=== PATIENT | female | born 1955 | race Caucasian/White ===

== ENCOUNTER → 2017-05-26 | Outpatient (REF) | payer OTHER | LOC: M LAB REF 12:46 | DX: J36 Peritonsillar abscess (principal) ==

== ENCOUNTER 2017-06-07 10:26 | Inpatient (IN) | payer OTHER ==
[2017-06-07 12:13] LABS: BASO # 0.1 10^3/uL (0.0-0.2); BASO % 0.2 % (0.0-1.0); EOS % 0.2 % (0.0-3.0); HEMOGLOBIN 15.5 g/dl (12.0-16.0); IMMATURE GRANULOCYTE % 1.1 % (0-3.0); LYMPH # 1.2 10^3/uL (1.5-4.5); LYMPH % 5.5 % (24.0-44.0); MEAN CORPUSCULAR HEMOGLOBIN 30.2 pg (27.0-33.0); MEAN CORPUSCULAR HGB CONC 33.7 g/dl (32.0-36.5); MEAN CORPUSCULAR VOLUME 89.7 fl (80.0-96.0); MONO # 0.5 10^3/uL (0.0-0.8); MONO % 2.1 % (0.0-5.0); NEUTROPHILS # 20.2 10^3/uL (1.8-7.7); NEUTROPHILS % 90.9 % (36.0-66.0); PLATELET COUNT, AUTOMATED 335 10^3/uL (150-450); RED BLOOD COUNT 5.13 10^6/uL (4.00-5.40); RED CELL DISTRIBUTION WIDTH 13.2 % (11.5-14.5); WHITE BLOOD COUNT 22.2 10^3/uL (4.0-10.0)
[2017-06-07 12:24] LABS: ANION GAP 7 MEQ/L (8-16); BLOOD UREA NITROGEN 17 MG/DL (7-18); CALCIUM LEVEL 9.2 MG/DL (8.8-10.2); CARBON DIOXIDE LEVEL 30 MEQ/L (21-32); CHLORIDE LEVEL 102 MEQ/L (98-107); CPK CREATINE PHOSPHOKINASE 95 U/L (26-192); CREATININE FOR GFR 0.97 MG/DL (0.55-1.30); GLOMERULAR FILTRATION RATE > 60.0 (>45); GLUCOSE, FASTING 142 MG/DL (70-100); POTASSIUM SERUM 3.9 MEQ/L (3.5-5.1); SODIUM LEVEL 139 MEQ/L (136-145); TROPONIN I < 0.02 NG/ML (< 0.10)
[2017-06-07] MEDS: IPRATROPIUM 0.5MG/ALBUTEROL 2.5MG INH SOL UD 3ML (DUONEB)(J7620) NEB ×2 (12:24→19:58)
[2017-06-07] MEDS: methylPREDNISolone INJ 125 MG/2 ML VIAL (J2930) IV (12:24)
[2017-06-07 12:25] LABS: NT-PRO BNP 79 PG/ML (<125)
[2017-06-07 12:25] LABS: CK-MB VALUE MASS 1.5 NG/ML (0.0-3.6); MB/CK RELATIVE INDEX 1.57 (< OR =4)
[2017-06-07 12:59] LABS: LACTIC ACID SEPSIS PROTOCOL 2.3 MMOL/L (0.4-2.0)
[2017-06-07] MEDS ORDERED: ISOVUE-370 76% 100ML VIAL (Q9967) As Ordered (13:17)
[2017-06-07] MEDS: cefTRIAXone SOD 2 GM in D5W MINI-BAG PLUS 50 ML IV (14:45)
[2017-06-07 15:00] LABS: ALBUMIN 3.7 GM/DL (3.2-5.2); ALBUMIN/GLOBULIN RATIO 1.16 (1.00-1.93); ALKALINE PHOSPHATASE 85 U/L (45-117); ALT/SGPT 36 U/L (12-78); AST/SGOT 19 U/L (7-37); BILIRUBIN,DIRECT < 0.1 MG/DL (0.0-0.2); BILIRUBIN,TOTAL 0.4 MG/DL (0.2-1.0); LIPASE 390 U/L (73-393); TOTAL PROTEIN 6.9 GM/DL (6.4-8.2)
[2017-06-07 15:30] LABS: INR 0.99; PROTHROMBIN TIME 13.2 SECONDS (12.4-14.5)
[2017-06-07] MEDS ORDERED: IPRATROPIUM 0.5MG/ALBUTEROL 2.5MG INH SOL UD 3ML (DUONEB)(J7620) NEB (15:30)
[2017-06-07 15:31] LABS: PARTIAL THROMBOPLASTIN TIME 31.5 SECONDS (26.8-37.9)
[2017-06-07] MEDS: AZITHROMYCIN INJ 500 MG, VIAL MATE ADAPTER 1 EACH in D5W 250 ML IV (15:41)
[2017-06-07] MEDS: NS 1,000 ML IV ×2 (16:06→23:00)
[2017-06-07 18:32] LABS: LACTIC ACID SEPSIS PROTOCOL 4.8 MMOL/L (0.4-2.0)
[2017-06-07] MEDS: NS 500 ML IV (18:39)
[2017-06-07 18:42] LABS: CK-MB VALUE MASS 1.7 NG/ML (0.0-3.6); CPK CREATINE PHOSPHOKINASE 109 U/L (26-192); MB/CK RELATIVE INDEX 1.55 (< OR =4); TROPONIN I < 0.02 NG/ML (< 0.10)
[2017-06-08] MEDS: IPRATROPIUM 0.5MG/ALBUTEROL 2.5MG INH SOL UD 3ML (DUONEB)(J7620) NEB ×4 (00:20→21:30)
[2017-06-08 02:35] LABS: CK-MB VALUE MASS 1.8 NG/ML (0.0-3.6); CPK CREATINE PHOSPHOKINASE 121 U/L (26-192); MB/CK RELATIVE INDEX 1.48 (< OR =4); TROPONIN I < 0.02 NG/ML (< 0.10)
[2017-06-08 07:19] LABS: BASO # 0.1 10^3/uL (0.0-0.2); BASO % 0.2 % (0.0-1.0); HEMATOCRIT 39.8 % (36.0-47.0); IMMATURE GRANULOCYTE % 1.1 % (0-3.0); LYMPH # 2.7 10^3/uL (1.5-4.5); MEAN CORPUSCULAR HEMOGLOBIN 30.6 pg (27.0-33.0); MEAN CORPUSCULAR HGB CONC 33.9 g/dl (32.0-36.5); MEAN CORPUSCULAR VOLUME 90.2 fl (80.0-96.0); MONO # 1.2 10^3/uL (0.0-0.8); MONO % 4.4 % (0.0-5.0); NEUTROPHILS # 22.6 10^3/uL (1.8-7.7); NEUTROPHILS % 84.3 % (36.0-66.0); PLATELET COUNT, AUTOMATED 284 10^3/uL (150-450); RED BLOOD COUNT 4.41 10^6/uL (4.00-5.40); RED CELL DISTRIBUTION WIDTH 13.4 % (11.5-14.5); WHITE BLOOD COUNT 26.8 10^3/uL (4.0-10.0)
[2017-06-08 07:36] LABS: ALBUMIN 3.1 GM/DL (3.2-5.2); ALBUMIN/GLOBULIN RATIO 1.15 (1.00-1.93); ALKALINE PHOSPHATASE 70 U/L (45-117); ALT/SGPT 28 U/L (12-78); ANION GAP 7 MEQ/L (8-16); AST/SGOT 17 U/L (7-37); BILIRUBIN,TOTAL 0.4 MG/DL (0.2-1.0); BLOOD UREA NITROGEN 13 MG/DL (7-18); CALCIUM LEVEL 8.4 MG/DL (8.8-10.2); CARBON DIOXIDE LEVEL 24 MEQ/L (21-32); CHLORIDE LEVEL 110 MEQ/L (98-107); CREATININE FOR GFR 0.83 MG/DL (0.55-1.30); GLOMERULAR FILTRATION RATE > 60.0 (>45); GLUCOSE, FASTING 106 MG/DL (70-100); MAGNESIUM LEVEL 2.3 MG/DL (1.8-2.4); POTASSIUM SERUM 4.1 MEQ/L (3.5-5.1); SODIUM LEVEL 141 MEQ/L (136-145); TOTAL PROTEIN 5.8 GM/DL (6.4-8.2)
[2017-06-08 07:37] LABS: HEMOGLOBIN 13.5 g/dl (12.0-16.0)
[2017-06-08] MEDS: FAMOTIDINE 20 MG TAB PO (08:57)
[2017-06-08] MEDS: ATORVASTATIN 10 MG TAB PO (08:57)
[2017-06-08] MEDS: NS 1,000 ML IV ×2 (08:58→21:15)
[2017-06-08 10:55] LABS: CK-MB VALUE MASS 2.3 NG/ML (0.0-3.6); CPK CREATINE PHOSPHOKINASE 133 U/L (26-192); MB/CK RELATIVE INDEX 1.72 (< OR =4); TROPONIN I 0.08 NG/ML (< 0.10)
[2017-06-08] MEDS ORDERED: LIDOCAINE 1% MDV 20ML VIAL As Ordered (13:20)
[2017-06-08] MEDS: ENOXAPARIN 40 MG/0.4 ML SYRINGE (J1650) SC (15:14)
[2017-06-08] MEDS: CEFTRIAXONE SOD 2 GM in APPROPRIATE DILUENT 1 EA IV (15:14)
[2017-06-08 15:39] LABS: C REACTIVE PROTEIN QUANTITATIV < 0.30 MG/DL (0.00-0.30)
[2017-06-08 15:45] LABS: LACTIC ACID SEPSIS PROTOCOL 2.2 MMOL/L (0.4-2.0)
[2017-06-08] MEDS: AZITHROMYCIN INJ 500 MG, VIAL MATE ADAPTER 1 EACH in D5W 250 ML IV (17:17)
[2017-06-08] MEDS: NORTRIPTYLINE 10 MG CAP PO (21:39)
[2017-06-09 00:45] LABS: LACTIC ACID SEPSIS PROTOCOL 1.1 MMOL/L (0.4-2.0)
[2017-06-09] MEDS: ACETAMINOPHEN TAB 650MG DOSE (2X325MG) PO ×2 (01:44→14:48)
[2017-06-09] MEDS: IPRATROPIUM 0.5MG/ALBUTEROL 2.5MG INH SOL UD 3ML (DUONEB)(J7620) NEB ×4 (02:33→18:56)
[2017-06-09 07:03] LABS: BASO % 0.2 % (0.0-1.0); EOS # 0.2 10^3/uL (0.0-0.50); HEMATOCRIT 37.1 % (36.0-47.0); HEMOGLOBIN 12.4 g/dl (12.0-16.0); IMMATURE GRANULOCYTE % 0.7 % (0-3.0); LYMPH # 3.7 10^3/uL (1.5-4.5); LYMPH % 21.5 % (24.0-44.0); MEAN CORPUSCULAR HEMOGLOBIN 30.6 pg (27.0-33.0); MEAN CORPUSCULAR HGB CONC 33.4 g/dl (32.0-36.5); MEAN CORPUSCULAR VOLUME 91.6 fl (80.0-96.0); MONO # 0.8 10^3/uL (0.0-0.8); MONO % 4.9 % (0.0-5.0); NEUTROPHILS # 12.2 10^3/uL (1.8-7.7); NEUTROPHILS % 71.7 % (36.0-66.0); PLATELET COUNT, AUTOMATED 241 10^3/uL (150-450); RED BLOOD COUNT 4.05 10^6/uL (4.00-5.40); RED CELL DISTRIBUTION WIDTH 13.8 % (11.5-14.5)
[2017-06-09] MEDS: NS 1,000 ML IV ×2 (07:15→12:59)
[2017-06-09 07:31] LABS: ALBUMIN 2.8 GM/DL (3.2-5.2); ALBUMIN/GLOBULIN RATIO 1.04 (1.00-1.93); ALKALINE PHOSPHATASE 61 U/L (45-117); ALT/SGPT 28 U/L (12-78); ANION GAP 7 MEQ/L (8-16); AST/SGOT 16 U/L (7-37); BILIRUBIN,TOTAL 0.4 MG/DL (0.2-1.0); BLOOD UREA NITROGEN 14 MG/DL (7-18); C REACTIVE PROTEIN QUANTITATIV 0.58 MG/DL (0.00-0.30); CALCIUM LEVEL 7.9 MG/DL (8.8-10.2); CARBON DIOXIDE LEVEL 24 MEQ/L (21-32); CHLORIDE LEVEL 111 MEQ/L (98-107); CREATININE FOR GFR 0.87 MG/DL (0.55-1.30); GLOMERULAR FILTRATION RATE > 60.0 (>45); GLUCOSE, FASTING 95 MG/DL (70-100); MAGNESIUM LEVEL 2.2 MG/DL (1.8-2.4); POTASSIUM SERUM 3.8 MEQ/L (3.5-5.1); SODIUM LEVEL 142 MEQ/L (136-145); TOTAL PROTEIN 5.5 GM/DL (6.4-8.2)
[2017-06-09] MEDS ORDERED: guaiFENesin DM LIQ 10ML UD PO (10:15)
[2017-06-09] MEDS: ATORVASTATIN 10 MG TAB PO (10:24)
[2017-06-09] MEDS: FAMOTIDINE 20 MG TAB PO (10:25)
[2017-06-09] MEDS: ENOXAPARIN 40 MG/0.4 ML SYRINGE (J1650) SC (10:26)
[2017-06-09] MEDS: predniSONE 20 MG TAB PO (10:39)
[2017-06-09] MEDS: CEFTRIAXONE SOD 2 GM in APPROPRIATE DILUENT 1 EA IV (14:51)
[2017-06-09] MEDS: amLODIPine 5 MG TAB PO (15:56)
[2017-06-09] MEDS: AZITHROMYCIN INJ 500 MG, VIAL MATE ADAPTER 1 EACH in D5W 250 ML IV (16:01)
[2017-06-09] MEDS: NORTRIPTYLINE 10 MG CAP PO (20:29)
[2017-06-10] MEDS: IPRATROPIUM 0.5MG/ALBUTEROL 2.5MG INH SOL UD 3ML (DUONEB)(J7620) NEB ×4 (02:31→20:04)
[2017-06-10 06:52] LABS: BASO % 0.2 % (0.0-1.0); EOS # 0.1 10^3/uL (0.0-0.50); EOS % 0.7 % (0.0-3.0); HEMATOCRIT 37.5 % (36.0-47.0); HEMOGLOBIN 12.5 g/dl (12.0-16.0); IMMATURE GRANULOCYTE % 0.9 % (0-3.0); LYMPH # 3.3 10^3/uL (1.5-4.5); LYMPH % 18.1 % (24.0-44.0); MEAN CORPUSCULAR HEMOGLOBIN 30.3 pg (27.0-33.0); MEAN CORPUSCULAR HGB CONC 33.3 g/dl (32.0-36.5); MEAN CORPUSCULAR VOLUME 90.8 fl (80.0-96.0); MONO # 0.9 10^3/uL (0.0-0.8); MONO % 4.6 % (0.0-5.0); NEUTROPHILS # 13.8 10^3/uL (1.8-7.7); NEUTROPHILS % 75.5 % (36.0-66.0); PLATELET COUNT, AUTOMATED 228 10^3/uL (150-450); RED BLOOD COUNT 4.13 10^6/uL (4.00-5.40); RED CELL DISTRIBUTION WIDTH 13.3 % (11.5-14.5); WHITE BLOOD COUNT 18.3 10^3/uL (4.0-10.0)
[2017-06-10 07:11] LABS: ALBUMIN 2.9 GM/DL (3.2-5.2); ALKALINE PHOSPHATASE 71 U/L (45-117); ALT/SGPT 29 U/L (12-78); ANION GAP 8 MEQ/L (8-16); AST/SGOT 18 U/L (7-37); BILIRUBIN,TOTAL 0.4 MG/DL (0.2-1.0); BLOOD UREA NITROGEN 15 MG/DL (7-18); CALCIUM LEVEL 8.6 MG/DL (8.8-10.2); CARBON DIOXIDE LEVEL 24 MEQ/L (21-32); CHLORIDE LEVEL 107 MEQ/L (98-107); CREATININE FOR GFR 0.94 MG/DL (0.55-1.30); GLOMERULAR FILTRATION RATE > 60.0 (>45); GLUCOSE, FASTING 94 MG/DL (70-100); MAGNESIUM LEVEL 2.2 MG/DL (1.8-2.4); POTASSIUM SERUM 3.7 MEQ/L (3.5-5.1); SODIUM LEVEL 139 MEQ/L (136-145); TOTAL PROTEIN 5.8 GM/DL (6.4-8.2)
[2017-06-10] MEDS: FAMOTIDINE 20 MG TAB PO (09:05)
[2017-06-10] MEDS: ATORVASTATIN 10 MG TAB PO (09:05)
[2017-06-10] MEDS: predniSONE 20 MG TAB PO (09:05)
[2017-06-10] MEDS: amLODIPine 5 MG TAB PO (09:06)
[2017-06-10] MEDS: ENOXAPARIN 40 MG/0.4 ML SYRINGE (J1650) SC (09:07)
[2017-06-10] MEDS: CEFTRIAXONE SOD 2 GM in APPROPRIATE DILUENT 1 EA IV (16:51)
[2017-06-10] MEDS: AZITHROMYCIN INJ 500 MG, VIAL MATE ADAPTER 1 EACH in D5W 250 ML IV (18:01)
== END 2017-06-10 20:31 | disposition short-term general hospital (02) | DRG 194 ==
LOC: M ED 10:26 → M ED INP 14:55 → M MS5PR 20:21
PROC: 0FB23ZX Excision of Left Lobe Liver, Percutaneous Approach, Diagnostic (ICD-10-PCS; principal; 2017-06-08)
DX: J18.9 Pneumonia, unspecified organism (principal); E87.2 Acidosis; J44.1 Chronic obstructive pulmonary disease with (acute) exacerbation; C78.01 Secondary malignant neoplasm of right lung; I10 Essential (primary) hypertension; I71.4 Abdominal aortic aneurysm, without rupture; E78.5 Hyperlipidemia, unspecified; K21.9 Gastro-esophageal reflux disease without esophagitis; Z90.49 Acquired absence of other specified parts of digestive tract; Z87.891 Personal history of nicotine dependence; Z79.899 Other long term (current) drug therapy; Z88.0 Allergy status to penicillin

== ENCOUNTER → 2017-09-30 | Outpatient (CLI) | payer OTHER | LOC: M ONCR 09:50 | DX: C34.90 Malignant neoplasm of unspecified part of unspecified bronchus or lung (principal); C78.7 Secondary malignant neoplasm of liver and intrahepatic bile duct | CPT/HCPCS: G0463 ==

== ENCOUNTER → 2017-10-05 | Outpatient (CLI) | payer OTHER | LOC: M CARPUL 06:55 | DX: C34.90 Malignant neoplasm of unspecified part of unspecified bronchus or lung (principal) | CPT/HCPCS: 94010 ==

== ENCOUNTER → 2017-10-05 | Outpatient (CLI) | payer OTHER | LOC: M RAD 08:32 | DX: C34.90 Malignant neoplasm of unspecified part of unspecified bronchus or lung (principal) | CPT/HCPCS: 71046 ==

== ENCOUNTER 2017-10-10 10:06 | Outpatient (RCR) | payer OTHER | END 2017-11-08 | LOC: M ONCR 10:06 | DX: C34.90 Malignant neoplasm of unspecified part of unspecified bronchus or lung (principal) | CPT/HCPCS: 77300 ==

== ENCOUNTER 2017-11-09 09:38 | Outpatient (RCR) | payer OTHER | END 2017-12-09 | LOC: M ONCR 09:38 | DX: C34.90 Malignant neoplasm of unspecified part of unspecified bronchus or lung (principal) | CPT/HCPCS: 77336 ==

== ENCOUNTER 2017-11-13 08:55 | Emergency (ER) | payer OTHER ==
[2017-11-13] MEDS: NS 1,000 ML IV (09:42)
[2017-11-13] MEDS: methylPREDNISolone INJ 125 MG/2 ML VIAL (J2930) IV (09:42)
[2017-11-13] MEDS: diphenhydrAMINE INJ 50MG/ML VIAL (J1200) IV (09:42)
[2017-11-13] MEDS: FAMOTIDINE INJ 20MG/2ML VIAL (S0028) IV (09:50)
[2017-11-13 10:00] LABS: BASO % 0.1 % (0.0-1.0); EOS % 0.3 % (0.0-3.0); HEMATOCRIT 38.2 % (36.0-47.0); HEMOGLOBIN 13.3 g/dl (12.0-15.5); IMMATURE GRANULOCYTE % 0.4 % (0-3.0); LYMPH # 0.4 10^3/uL (1.5-4.5); LYMPH % 4.9 % (24.0-44.0); MEAN CORPUSCULAR HEMOGLOBIN 32.4 pg (27.0-33.0); MEAN CORPUSCULAR HGB CONC 34.8 g/dl (32.0-36.5); MEAN CORPUSCULAR VOLUME 92.9 fl (80.0-96.0); MONO # 0.3 10^3/uL (0.0-0.8); MONO % 3.9 % (0.0-5.0); NEUTROPHILS # 7.2 10^3/uL (1.8-7.7); NEUTROPHILS % 90.4 % (36.0-66.0); PLATELET COUNT, AUTOMATED 172 10^3/uL (150-450); RED BLOOD COUNT 4.11 10^6/uL (4.00-5.40); RED CELL DISTRIBUTION WIDTH 11.5 % (11.5-14.5); WHITE BLOOD COUNT 7.9 10^3/uL (4.0-10.0)
[2017-11-13 10:56] LABS: ALBUMIN 3.2 GM/DL (3.2-5.2); ALBUMIN/GLOBULIN RATIO 1.03 (1.00-1.93); ALKALINE PHOSPHATASE 71 U/L (45-117); ALT/SGPT 16 U/L (12-78); ANION GAP 9 MEQ/L (8-16); AST/SGOT 19 U/L (7-37); BILIRUBIN,DIRECT 0.1 MG/DL (0.0-0.2); BILIRUBIN,TOTAL 0.5 MG/DL (0.2-1.0); BLOOD UREA NITROGEN 21 MG/DL (7-18); CALCIUM LEVEL 8.6 MG/DL (8.8-10.2); CARBON DIOXIDE LEVEL 25 MEQ/L (21-32); CHLORIDE LEVEL 103 MEQ/L (98-107); CREATININE FOR GFR 1.74 MG/DL (0.55-1.30); GLOMERULAR FILTRATION RATE 31.5 (>45); GLUCOSE, FASTING 130 MG/DL (70-100); POTASSIUM SERUM 3.9 MEQ/L (3.5-5.1); SODIUM LEVEL 137 MEQ/L (136-145); TOTAL PROTEIN 6.3 GM/DL (6.4-8.2)
== END 2017-11-13 11:52 | disposition home or self-care (01) ==
LOC: M ED 08:55
DX: L50.9 Urticaria, unspecified (principal); N28.9 Disorder of kidney and ureter, unspecified; C34.90 Malignant neoplasm of unspecified part of unspecified bronchus or lung; I10 Essential (primary) hypertension; E78.5 Hyperlipidemia, unspecified; Z87.891 Personal history of nicotine dependence; Z79.899 Other long term (current) drug therapy; Z88.0 Allergy status to penicillin
CPT/HCPCS: J1200

== ENCOUNTER → 2017-11-21 | Outpatient (CLI) | payer OTHER ==
[2017-11-21 10:38] LABS: ALBUMIN 3.2 GM/DL (3.2-5.2); ALBUMIN/GLOBULIN RATIO 1.14 (1.00-1.93); ALKALINE PHOSPHATASE 91 U/L (45-117); ALT/SGPT 22 U/L (12-78); ANION GAP 9 MEQ/L (8-16); AST/SGOT 13 U/L (7-37); BILIRUBIN,TOTAL 0.2 MG/DL (0.2-1.0); BLOOD UREA NITROGEN 30 MG/DL (7-18); CALCIUM LEVEL 8.4 MG/DL (8.8-10.2); CARBON DIOXIDE LEVEL 27 MEQ/L (21-32); CHLORIDE LEVEL 107 MEQ/L (98-107); CREATININE FOR GFR 1.25 MG/DL (0.55-1.30); GLOMERULAR FILTRATION RATE 46.1 (>45); GLUCOSE, FASTING 92 MG/DL (70-100); POTASSIUM SERUM 3.7 MEQ/L (3.5-5.1); SODIUM LEVEL 143 MEQ/L (136-145)
== END ==
LOC: M LAB 09:03
DX: N28.9 Disorder of kidney and ureter, unspecified (principal); C34.90 Malignant neoplasm of unspecified part of unspecified bronchus or lung
CPT/HCPCS: 80053

== ENCOUNTER → 2017-12-21 | Outpatient (CLI) | payer OTHER ==
[~2017-12-21] MED LIST: PROHANCE 279.3MG/ML 15ML VIAL (A9576) As Ordered
== END ==
LOC: M RAD 09:59
DX: C34.01 Malignant neoplasm of right main bronchus (principal); G93.9 Disorder of brain, unspecified
CPT/HCPCS: A9576

== ENCOUNTER 2017-12-22 09:50 | Outpatient (RCR) | payer OTHER | END 2018-01-08 | LOC: M ONCR 12-26 14:45 | DX: C34.90 Malignant neoplasm of unspecified part of unspecified bronchus or lung (principal); C79.31 Secondary malignant neoplasm of brain | CPT/HCPCS: 77334 ==

== ENCOUNTER 2017-12-22 10:00 | Outpatient (RCR) | payer OTHER | END 2018-01-08 | LOC: M ONCR 10:00 | DX: C34.90 Malignant neoplasm of unspecified part of unspecified bronchus or lung (principal); C79.31 Secondary malignant neoplasm of brain | CPT/HCPCS: 77307 ==

== ENCOUNTER 2018-01-02 10:32 | Emergency (ER) | payer OTHER ==
[2018-01-02 11:21] LABS: BASO # 0.1 10^3/uL (0.0-0.2); BASO % 0.5 % (0.0-1.0); HEMATOCRIT 33.1 % (36.0-47.0); HEMOGLOBIN 10.9 g/dl (12.0-15.5); LYMPH % 1.6 % (24.0-44.0); MEAN CORPUSCULAR HGB CONC 32.9 g/dl (32.0-36.5); MONO # 0.3 10^3/uL (0.0-0.8); MONO % 3.3 % (0.0-5.0); NEUTROPHILS # 9.2 10^3/uL (1.8-7.7); NEUTROPHILS % 89.6 % (36.0-66.0); PLATELET COUNT, AUTOMATED 172 10^3/uL (150-450); RED BLOOD COUNT 3.52 10^6/uL (4.00-5.40); RED CELL DISTRIBUTION WIDTH 14.1 % (11.5-14.5); WHITE BLOOD COUNT 10.2 10^3/uL (4.0-10.0)
[2018-01-02 11:34] LABS: INR 0.99; PROTHROMBIN TIME 13.2 SECONDS (12.1-14.4)
[2018-01-02 11:35] LABS: PARTIAL THROMBOPLASTIN TIME 24.6 SECONDS (25.4-37.6)
[2018-01-02 11:48] LABS: LYMPH # 0.2 10^3/uL (1.5-4.5); POSITIVE DIFF POS FLAG
[2018-01-02 11:51] LABS: ERYTHROCYTE SEDIMENTATION RATE 15 mm/hr (0-30)
[2018-01-02 11:55] LABS: LACTIC ACID SEPSIS PROTOCOL 2.4 MMOL/L (0.4-2.0)
[2018-01-02 11:56] LABS: ALBUMIN 2.9 GM/DL (3.2-5.2); ALBUMIN/GLOBULIN RATIO 1.12 (1.00-1.93); ALKALINE PHOSPHATASE 107 U/L (45-117); ALT/SGPT 29 U/L (12-78); ANION GAP 8 MEQ/L (8-16); AST/SGOT 12 U/L (7-37); BILIRUBIN,DIRECT 0.1 MG/DL (0.0-0.2); BILIRUBIN,TOTAL 0.4 MG/DL (0.2-1.0); BLOOD UREA NITROGEN 48 MG/DL (7-18); CALCIUM LEVEL 8.2 MG/DL (8.8-10.2); CARBON DIOXIDE LEVEL 25 MEQ/L (21-32); CHLORIDE LEVEL 105 MEQ/L (98-107); CREATININE FOR GFR 1.42 MG/DL (0.55-1.30); GLOMERULAR FILTRATION RATE 39.8 (>45); GLUCOSE, FASTING 153 MG/DL (70-100); POTASSIUM SERUM 4.6 MEQ/L (3.5-5.1); SODIUM LEVEL 138 MEQ/L (136-145); TOTAL PROTEIN 5.5 GM/DL (6.4-8.2)
[2018-01-02 12:06] LABS: C REACTIVE PROTEIN QUANTITATIV < 0.30 MG/DL (0.00-0.30)
[2018-01-02] MEDS: PERCOCET 5MG/325MG TAB PO (12:16)
[2018-01-02 12:26] LABS: IONIZED CALCIUM 4.5 MG/DL (4.5-5.3)
== END 2018-01-02 13:22 | disposition home or self-care (01) ==
LOC: M ED 10:32
DX: M25.561 Pain in right knee (principal); M25.562 Pain in left knee; I10 Essential (primary) hypertension; F17.200 Nicotine dependence, unspecified, uncomplicated
CPT/HCPCS: 73564

== ENCOUNTER → 2018-02-01 | Outpatient (CLI) | payer OTHER | LOC: M ONCR 14:43 | DX: C34.90 Malignant neoplasm of unspecified part of unspecified bronchus or lung (principal) ==

== ENCOUNTER → 2018-05-17 | Outpatient (CLI) | payer OTHER ==
[~2018-05-17] MED LIST changes: +ASCO25TA PO; +ASPI325T PO; +ATOR1TAB19 PO; +BIOT10TA2 PO; +BIOT5TAB3 PO; +CARV6.25 PO; +DECA4TAB PO; +DIPH25CA PO; +LISI20TA3 PO; +MAGN1TAB25 PO; +ONDA4TAB5 PO; +PERC5TAB12 PO; +POTA99TA PO; +PRED20TA PO; +PRED5EL PO; +PRED5TA PO; -PROHANCE 279.3MG/ML 15ML VIAL (A9576) As Ordered; +RANI300T PO; +SPIR-10 PO; +VITA100066 PO; +VITA500T PO; +VITATAB11 PO
--- NOTE | 2018-05-18 10:56 | RADONC ---
RADIATION ONCOLOGY FOLLOWUP NOTE DATE: 05/17/2018 CHART NUMBER: [id number] DIAGNOSIS: Small cell lung carcinoma. STAGE: IV, extensive. ECOG PERFORMANCE STATUS: 0 FOLLOWUP NOTE: Ms. Calvo is a very pleasant, 62-year-old white female with the diagnosis extensive stage small-cell lung carcinoma who is presenting to us today for routine followup visit 5 months post completion of whole brain radiation therapy. The patient presents today reporting generally she is doing well. She apparently has progression of disease and has initiated a new systemic therapy with her medical oncologist, Dr. Brandon Welch. She is being seen in her medical oncology office every 3 weeks. REVIEW OF SYSTEMS: The patient's review of systems is noncontributory. Denies nausea, vomiting, fevers, chills, night sweats, diplopia, headaches, anxiety or depression, anorexia, weight loss, visual disturbances, chest pain, urinary or bowel difficulties, bone pain, or neurological problems. PHYSICAL EXAMINATION: The patient is a well-developed, well-nourished, 62-year-old white female, in no acute distress. HEENT exam is normocephalic, atraumatic. Extraocular movements are intact. There is no palpable cervical, supraclavicular, infraclavicular, axillary, or inguinal lymphadenopathy present. Lungs are clear to auscultation and percussion. Heart has a regular rate and rhythm. Abdomen is benign with no hepatosplenomegaly, masses, or tenderness. Skeletal examination reveals no tenderness to pressure or percussion of the bony skeleton. Extremities reveal no clubbing, cyanosis, or edema. Neurologic exam is grossly intact, as is the remainder of the physical examination. ASSESSMENT: The patient is being followed and managed closely by her medical oncologist and is being seen every 4 weeks and receiving systemic therapy. In light of this very close management and followup, I have discharged her from our followup except on a p.r.n. basis. I have given the patient our office number as well as her cell phone number and let her know to feel free and contact me at anytime if we could be of any assistance in the meantime. I also let her know to contact us should any questions arise or should she have any new symptoms or problems. She has also been informed that Dr. Welch will be referring her back to us should he feel there is an indication for radiation therapy. cc: MD Faye Sawant DO Edward J Wyluda DO
== END ==
LOC: M ONCR 08:47
PROVIDERS: ATTEND Radiology Radiation Oncology
DX: C34.90 Malignant neoplasm of unspecified part of unspecified bronchus or lung (principal)

== ENCOUNTER → 2018-08-21 | Outpatient (REF) | payer OTHER ==
[~2018-08-21] MED LIST changes: -ASCO25TA PO; +ASPI-1 PO; -ASPI325T PO; -MAGN1TAB25 PO; +MAGN1TAB26 PO; +VITA1TAB23 PO
[2018-08-21 18:36] LABS: PERCENT SATURATION 32.7 % (13.2-45.0)
== END ==
LOC: M LAB REF 17:30
PROVIDERS: ATTEND Internal Medicine Nephrology
DX: D50.9 Iron deficiency anemia, unspecified (principal)

== ENCOUNTER → 2018-10-02 | Outpatient (CLI) | payer OTHER ==
[~2018-10-02] MED LIST changes: +PROHANCE 279.3MG/ML 5ML VIAL (A9576) As Ordered ONE
--- NOTE | 2018-10-02 16:20 | REP ---
MRI brain without and with IV gadolinium: History: History of metastatic intracranial disease status post radiation therapy. For reassessment. Comparison MRI study is from December 21, 2017. Technique: Axial and sagittal imaging planes are utilized for T1 and T2-weighted scans. Sequences include spin-echo, fast spin echo, FLAIR, and diffusion weighted sequences. The gadolinium enhancement dose is 7 mL of intravenous ProHance. MRI findings: No bony calvarial lesion is appreciated. There is mucosal thickening affecting the left maxillary sinus and left ethmoid sinuses today. This it is more pronounced in the maxillary sinus and new in the ethmoid sinuses. No intraorbital abnormality is seen. Craniocervical junction is unremarkable. No evidence of intracranial hemorrhage. Diffusion weighted scan show no evidence of restricted diffusion. The previously noted enhancing nodules distributed in the supratentorial brain are no longer apparent. There is no visible enhancing nodule today intracranially. No new lesion is seen. Impression: Previously noted pattern of intracranial metastatic disease is no longer apparent. No acute intracranial abnormality. Paranasal sinus disease involving the left maxillary and left ethmoid sinuses. Electronically Signed by Dixon Gaytan MD 10/02/2018 04:43 P
== END ==
LOC: M RAD 12:49
PROVIDERS: ATTEND Internal Medicine
DX: R91.8 Other nonspecific abnormal finding of lung field (principal); D64.9 Anemia, unspecified
CPT/HCPCS: 70553; A9576

== ENCOUNTER 2018-11-08 22:02 | Inpatient (IN) | payer OTHER ==
[~2018-11-08] VITALS: Ht 162.6 cm; Wt 91.2 kg
[~2018-11-08 22:02] MED LIST changes: -DIPH25CA PO; +DIPH25CA32 PO; +LISI20TA20 PO; -LISI20TA3 PO; -PROHANCE 279.3MG/ML 5ML VIAL (A9576) As Ordered ONE
[2018-11-08] MEDS ORDERED: NS 1,000 ML IV SCH (22:18)
[2018-11-08] MEDS ORDERED: KETOROLAC 30 MG/ML VIAL (J1885) IV ONE (22:30)
[2018-11-08] MEDS ORDERED: ONDANSETRON 4MG/2ML VIAL (J2405) IV ONE (22:30)
[2018-11-08] MEDS ORDERED: MORPHINE 2 MG/ML 1ML SYRINGE (J2270) IV ONE (22:30)
[2018-11-08 22:59] LABS: HEMATOCRIT 29.5 % (36.0-47.0); HEMOGLOBIN 9.7 g/dl (12.0-15.5); MEAN CORPUSCULAR HEMOGLOBIN 33.3 pg (27.0-33.0); MEAN CORPUSCULAR HGB CONC 32.9 g/dl (32.0-36.5); MEAN CORPUSCULAR VOLUME 101.4 fl (80.0-96.0); RED BLOOD COUNT 2.91 10^6/uL (4.00-5.40); WHITE BLOOD COUNT 22.2 10^3/uL (4.0-10.0)
[2018-11-08 23:02] LABS: PLATELET COUNT, AUTOMATED 57 10^3/uL (150-450)
[2018-11-08 23:06] LABS: INR 2.12; PROTHROMBIN TIME 23.5 SECONDS (11.8-14.0)
[2018-11-08 23:23] LABS: ATYPICAL LYMPH 5 % (0-5); LYMPHOCYTES 5 % (16-52); MONOCYTES 4 % (0-8); NEUTROPHILS 82 % (35-75)
[2018-11-08 23:24] LABS: ANISOCYTOSIS 1+; PLATELET ESTIMATE DECREASED (NORMAL); TOXIC GRANULATION 1+; TOXIC VACUOLATION 1+
[2018-11-08 23:26] LABS: OVALOCYTES 1+
[2018-11-08] MEDS ORDERED: fentaNYL 100 MCG/2 ML INJECTION (J3010) IV ONE (23:30)
[2018-11-09] VITALS (20 sets, daily range): BP systolic 64–88; BP diastolic 30–47
[2018-11-09] MEDS ORDERED: LIDOCAINE 2% 5ML JELLY UROJET TOP ONE
[2018-11-09] MEDS ORDERED: LORazepam 1 MG TAB PO STA (00:01)
[2018-11-09 00:08] LABS: ALBUMIN 2.2 GM/DL (3.2-5.2); BILIRUBIN,DIRECT 3.6 MG/DL (0.0-0.2); BILIRUBIN,TOTAL 4.2 MG/DL (0.2-1.0); CALCIUM LEVEL 7.4 MG/DL (8.8-10.2); CREATININE FOR GFR 4.15 MG/DL (0.55-1.30); GLOMERULAR FILTRATION RATE 11.5 (>45); POTASSIUM SERUM 5.8 MEQ/L (3.5-5.1); TOTAL PROTEIN 4.3 GM/DL (6.4-8.2)
--- NOTE | 2018-11-09 00:54 | REPVR ---
EXAM: CT Head Without Contrast EXAM DATE/TIME: 11/08/2018 11:56 PM CLINICAL HISTORY: 63 years old, female; Injury or trauma; Fall; Initial encounter; Concussion / head injury; Additional info: Altered TECHNIQUE: Imaging protocol: Computed tomography images of the head without contrast. Radiation optimization: All CT scans at this facility use at least one of these dose optimization techniques: automated exposure control; mA and/or kV adjustment per patient size (includes targeted exams where dose is matched to clinical indication); or iterative reconstruction. COMPARISON: CT Head without contrast 06/08/2017 2:55 PM FINDINGS: Brain: There is no acute intracranial abnormality. Mild prominence of ventricles and sulci representing volume loss. Mild small vessel ischemic changes are seen. There is no mass, midline shift, or mass effect. Alfonso-white matter differentiation is preserved. There is no evidence of hemorrhage. There is no extra-axial fluid collection. Basal cisterns are patent. Ventricles: See Brain Finding. Bones/joints: The visualized osseous structures are unremarkable. Sinuses: Visualized sinuses are clear. Mastoid air cells: Mastoid air cells are clear. Soft tissues: Unremarkable. IMPRESSION: 1. Mild volume loss and small vessel ischemic changes. . 2. No acute intracranial abnormality. Electronically signed by: Judi Smith On 11/09/2018 00:54:21 AM
[2018-11-09] MEDS ORDERED: NALOXONE INJ 2 MG/2 ML SYRINGE (J2310) As Ordered ONE (01:09)
[2018-11-09] MEDS ORDERED: NALOXONE INJ 2 MG/2 ML SYRINGE (J2310) IV STA (01:09)
[2018-11-09 01:26] LABS: AMPHETAMINES LEVEL URINE NEGATIVE (NEGATIVE); BARBITURATES URINE NEGATIVE (NEGATIVE); BENZODIAZEPINES URINE NEGATIVE (NEGATIVE); CANNABINOIDS URINE NEGATIVE (NEGATIVE); COCAINE METABOLITE URINE NEGATIVE (NEGATIVE); METHADONE URINE NEGATIVE (NEGATIVE); OPIATES URINE NEGATIVE (NEGATIVE); PHENCYCLIDINE URINE NEGATIVE (NEGATIVE)
[2018-11-09] MEDS ORDERED: NS 1,000 ML IV ONE ×3 (02:15→05:45)
[2018-11-09] MEDS ORDERED: SOD POLYSTYRENE SULFONATE SUSP 15 GM/60 ML UD PO ONE (02:30)
[2018-11-09 02:36] LABS: ABG BASE EXCESS -18.3 (-2.0-2.0); ABG HCO3 5.9 MEQ/L (22.0-26.0); ABG O2 SATURATION 98.6 % (95.0-99.0); ABG PARTIAL PRESSURE O2 150.2 mmHg (75.0-100.0); ABG STANDARD HCO3 10.7 MEQ/L (22.0-26.0); ABG TOTAL CO2 6.3 MEQ/L (23.0-31.0); ABG pH (ARTERIAL) 7.283 UNITS (7.350-7.450)
[2018-11-09 02:37] LABS: ABG PARTIAL PRESSURE CO2 12.7 mmHg (35.0-45.0)
[2018-11-09] MEDS ORDERED: SODIUM BICARBONATE 8.4% INJ 50 ML SYRINGE As Ordered ONE (02:44)
[2018-11-09] MEDS ORDERED: SODIUM BICARBONATE 8.4% INJ 50 ML SYRINGE IV ONE (02:45)
[2018-11-09] MEDS ORDERED: HYCA1CAP PO (02:55)
[2018-11-09] MEDS ORDERED: ALPH600C PO (02:55)
[2018-11-09] MEDS ORDERED: [UNRECOGNIZED DRUG - CODE] SC (02:55)
[2018-11-09] MEDS ORDERED: VITACAP8 PO (02:55)
[2018-11-09] MEDS ORDERED: [UNRECOGNIZED DRUG - CODE] PO (02:55)
[2018-11-09] MEDS ORDERED: FENT50DI5 TD (02:55)
[2018-11-09] MEDS ORDERED: PATIENT COMMENTS (02:56)
--- NOTE | 2018-11-09 03:40 | REPVR ---
EXAM: CT Abdomen and Pelvis Without Contrast EXAM DATE/TIME: 11/09/2018 2:40 AM CLINICAL HISTORY: 63 years old, female; Other: Hepatic&renal failure; Additional info: Eval hepat TECHNIQUE: Imaging protocol: Axial computed tomography images of the abdomen and pelvis without contrast. Coronal and sagittal reformatted images were created and reviewed. Radiation optimization: All CT scans at this facility use at least one of these dose optimization techniques: automated exposure control; mA and/or kV adjustment per patient size (includes targeted exams where dose is matched to clinical indication); or iterative reconstruction. COMPARISON: CT ABD PELVIS W/O CONTRAST 04/10/2018 1:50 PM FINDINGS: Lungs: Atelectasis in the visualized lungs. 2 to 3 mm lung nodules in the right lung. Followup as clinically indicated. Liver: Marked enlargement of the liver. Previously described liver metastases lesions are not seen on this noncontrast study. Gallbladder and bile ducts: Status post cholecystectomy. Pancreas: Mild atrophy of the pancreas. Pancreatic lesion versus lymph node adjacent to the head of the pancreas is difficult to visualize on this noncontrast study. Spleen: Spleen is small in size. Adrenals: Normal. No mass. Kidneys and ureters: Normal. No hydronephrosis. Stomach and bowel: Scattered colonic diverticula without CT evidence of diverticulitis. Appendix: No evidence of appendicitis. Intraperitoneal space: Normal. No free air. No significant fluid collection. Vasculature: Atherosclerosis. Stable abdominal aortic aneurysm. Lymph nodes: Normal. No enlarged lymph nodes. Bladder: Urinary bladder is decompressed with Patel. Reproductive: Prominent uterus for patient's age. Calcified densities in the uterus likely degenerative fibroids. Bilateral adnexa are unremarkable. Bones/joints: Diffuse demineralization of the bones with degenerative changes. Soft tissues: Unremarkable. Other findings: Coronary calcifications. IMPRESSION: 1. Marked hepatomegaly. Previously described liver metastases lesions are not seen on this noncontrast study. 2. Spleen is small in size. 3. Bilateral kidneys appears to be unremarkable. Electronically signed by: Judi Smith On 11/09/2018 03:39:27 AM
[2018-11-09] MEDS ORDERED: MEROPENEM INJ 1 GM in APPROPRIATE DILUENT 1 EA IV SCH (04:00)
[2018-11-09] MEDS ORDERED: LACTULOSE 20 GM/30 ML SYRUP UD PR ONE (04:15)
[2018-11-09] MEDS ORDERED: SODIUM BICARBONATE 150 MEQ in D5W 1,000 ML IV SCH (04:15)
[2018-11-09 05:16] LABS: HEMATOCRIT 28.6 % (36.0-47.0); HEMOGLOBIN 9.6 g/dl (12.0-15.5); MEAN CORPUSCULAR HEMOGLOBIN 34.3 pg (27.0-33.0); MEAN CORPUSCULAR HGB CONC 33.6 g/dl (32.0-36.5); MEAN CORPUSCULAR VOLUME 102.1 fl (80.0-96.0); PLATELET COUNT, AUTOMATED 57 10^3/uL (150-450)
[2018-11-09 05:24] LABS: LYMPHOCYTES 10 % (16-52); METAMYELOCYTES 2 % (0-0); MONOCYTES 6 % (0-8); NEUTROPHILS 77 % (35-75)
[2018-11-09 05:25] LABS: ANISOCYTOSIS 1+; INR 2.39; PLATELET ESTIMATE DECREASED (NORMAL); PROTHROMBIN TIME 25.9 SECONDS (11.8-14.0)
[2018-11-09 05:26] LABS: PARTIAL THROMBOPLASTIN TIME 41.4 SECONDS (25.0-38.4)
[2018-11-09 05:27] LABS: OVALOCYTES 1+; TOXIC GRANULATION 1+; TOXIC VACUOLATION 1+
[2018-11-09] MEDS ORDERED: LACTULOSE 20 GM/30 ML SYRUP UD PO SCH (06:00)
[2018-11-09 06:02] LABS: ALBUMIN 2.3 GM/DL (3.2-5.2); BILIRUBIN,DIRECT 4.1 MG/DL (0.0-0.2); BILIRUBIN,TOTAL 4.8 MG/DL (0.2-1.0); TOTAL PROTEIN 4.5 GM/DL (6.4-8.2)
--- NOTE | 2018-11-09 06:05 | HPEPDOC ---
General Date of Admission 11/09/18 Date of Service: Nov 09, 2018 Chief Complaint The patient is a 63-year-old female admitted with a reason for visit of Fall Injury. 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 She also has been having confusion,extreme weakness for 4 days. She has been sleeping too much since Tuesday and with minimal oral intake. So on Tuesday removed her fentanyl patch. She also had a fall on Tuesday that is 2 days ago but refused to come to hospital then. After removal of her fentanyl patch her pain had become uncontrollable. She was given morphine and fentanyl in the ED that made her very lethargic so was given narcan. In the ED patient was found to be encephalopathic ,in acute renal failure, with BUN> 100, severe high anion gap metabolic acidosis, lactic acidosis. elevated WBC. Her blood pressures were 80s/50s . She was found to be in acute hepatic failure and acute renal failure with acute metabolic encephalopathy. The patient complained of generalized abdominal pain with maximum in the right upper quadrant. it is dull aching in nature about 7/10 with radiation to the back. Home Medications Scheduled Alpha Lipoic Acid (Alpha Lipoic Acid) 600 Mg Capsule, 600 MG PO DAILY, (Reported) Ascorbic Acid (Vitamin C) 250 Mg Tab, 250 MG PO DAILY, (Reported) Biotin (Biotin) 10 Mg Tab, 10 MG PO DAILY, (Reported) Carvedilol (Carvedilol) 6.25 Mg Tab, 6.25 MG PO BID, (Reported) Pegfilgrastim-Cbqv (Udenyca) 6 Mg/0.6 Ml Syringe, 6 MG SC Q6DAYS, (Reported) TAKES AFTER 5 DAY COURSE OF HYCAMTIN. Ranitidine HCl (Ranitidine HCl) 300 Mg Tab, 1 TAB PO DAILY, (Reported) Spironolactone (Spironolactone) 25 Mg Tab, 25 MG PO DAILY, (Reported) Topotecan HCl (Hycamtin) 1 Mg Capsule, 4 MG PO DAILY, (Reported) FOR 5 DAYS. STARTED THURSDAY NOVEMBER 08, 2018. TAKES WITH 0.50MG DOSE FOR TOTAL OF 4.5MG DAILY Topotecan HCl (Hycamtin) 0.25 Mg Capsule, 0.5 MG PO DAILY, (Reported) FOR 5 DAYS. STARTED THURSDAY NOVEMBER 08, 2018. TAKES WITH 4MG DOSE FOR TOTAL OF 4.5MG DAILY Vitamin B Complex (Vitamin B Complex) 1 Each Capsule, 1 CAP PO DAILY, (Reported) fentaNYL (fentaNYL) 50 Mcg Patch.td72, 50 MCG TD Q3D, (Reported) REMOVED TUESDAY EVENING Miscellaneous Medications [Patient Comments] , (Reported) PATIENT'S FAMILY STATES SHE HAS PROBABLY NOT TAKEN HER SCHEDULED MEDICATIONS FOR SEVERAL DAYS WITH THE EXCEPTION OF THE HYCAMTIN Allergies Coded Allergies: Penicillins (Verified Allergy, Intermediate, Hives, 08/09/18) Past Medical History Medical History Extensive small cell cancer of lungs with liver and brain metastasis s/p different regimens of chemotherapy, whole brain radiation, thoracic radiation for mediastinal mass HTN, DLP and GERD, hiatal hernia, diverticulosis, hemorrhoids. Infrarenal abdominal aortic aneurysm, measuring 3.3 cm x 2.8 cm. Coronary artery disease. Surgical History She had a cholecystectomy in 1985. She had an appendectomy in 1964. Tubal ligation was in the 1975 and reversed in 1986. She has too tubal pregnancies in 1986. Family History Father: , 71, abdominal aortic aneurysm rupture. Mother: , 37, suicide. Siblings: Three brothers, half brother, half sister. Half sister has lupus. Social History * Smoker: Denies Alcohol: Denies Drugs: denies A-FIB/CHADSVASC A-FIB History Current/History of A-Fib/PAF?: No Review of Systems Constitutional: Reports: Weakness, Fatigue, Lethargy Eyes: Denies: Pain, Vision change Skin: Reports: Jaundice; Denies: Rash, Lesions Pulmonary: Reports: Dyspnea Cardiovascular: Reports: Edema; Denies: Chest Pain, Palpitations, Orthopnea, Paroxysmal Noc. Dyspnea Gastrointestinal: Reports: Abdominal Pain; Denies: Nausea, Vomiting, Diarrhea Genitourinary: Denies: Dysuria, Frequency, Incontinence, Retention Hematologic: Reports: Bruising; Denies: Bleeding Excessively Musculoskeletal: Reports: Back Pain Neurological: Reports: Incoordination, Change in speech, Confusion Physical Examination General Exam: Positive: Moderate Distress, Other (lethargic but arousable) Eye Exam: Positive: PERRLA, Sclera icteric ENT Exam: Positive: Atraumatic, Pharynx Normal, Other ENT (mucous membranes dry) Neck Exam: Positive: Supple; Negative: JVD, thyromegaly Chest Exam: Positive: Clear to auscultation, Normal air movement Heart Exam: Positive: Rate Normal, Regular Rhythm, Normal S1, Normal S2; Negative: Murmurs, Rubs Telemetry: Positive: No significant arrhythmia Abdomen Exam: Positive: Normal bowel sounds, Soft, Tenderness Extremity Exam: Positive: Cyanosis, Edema, Other (pulses not palpable) Vital Signs Vital Signs Date Time Temp Pulse Resp B/P (MAP) Pulse Ox O2 Delivery O2 Flow Rate FiO2 11/09/18 02:32 87 100 11/09/18 02:15 107/55 (72) 11/08/18 23:27 20 11/08/18 22:11 96.6 Laboratory Data Labs 24H Laboratory Tests 2 11/08/18 22:46: Prothrombin Time 23.5H, Prothromb Time International Ratio 2.12 11/08/18 22:47: Immature Granulocyte % (Auto) , Nucleated Red Blood Cells % (auto) 1.7H, Neutrophils 82H, Band Neutrophils 4, Lymphocytes (Manual) 5L, Monocytes (Manual) 4, Atypical Lymphocytes 5, Toxic Granulation 1+, Toxic Vacuolation 1+, Platelet Estimate DECREASED, Immature Platelet Fraction 6.2, Anisocytosis 1+, Macrocytosis 2+, Ovalocytes 1+, Anion Gap 22H, Glomerular Filtration Rate 11.5L, Calcium Level 7.4L, Aspartate Amino Transf (AST/SGOT) 1408H, Alanine Aminotransferase (ALT/SGPT) 836H, Alkaline Phosphatase 414H, Total Bilirubin 4.2H, Direct Bilirubin 3.6H, Total Protein 4.3L, Albumin 2.2L, Albumin/Globulin Ratio 1.05, Lipase 311 11/09/18 00:29: Ammonia 42H 11/09/18 00:41: Urine Color DARLENE, Urine Appearance CLOUDYH, Urine pH 5.0, Urine Specific [place] 1.013, Urine Protein NEGATIVE, Urine Glucose (UA) NEGATIVE, Urine Ketones NEGATIVE, Urine Blood 1+H, Urine Nitrite NEGATIVE, Urine Bilirubin NEGATIVE, Urine Urobilinogen 0.2, Urine Leukocyte Esterase NEGATIVE, Urine WBC (Auto) 0, Urine RBC (Auto) 0, Urine Hyaline Casts (Auto) 0, Urine Bacteria (Auto) 1+H, Urine Squamous Epithelial Cells 0, Urine Transitional Epithelial Cells 1, Urine Amorphous Sediment SMALLH, Urine Mucus (Auto) SMALL, Urine Sperm (Auto) , Urine Amphetamines Screen NEGATIVE, Urine Benzodiazepines Screen NEGATIVE, Urine Opiates Screen NEGATIVE, Urine Methadone Screen NEGATIVE, Urine Barbiturates Screen NEGATIVE, Urine Phencyclidine Screen NEGATIVE, Urine Cocaine Metabolite Screen NEGATIVE, Urine Cannabinoids Screen NEGATIVE 11/09/18 02:15: Blood Gas Bicarbonate Standard 10.7L, Arterial Blood pH 7.283L, Arterial Blood Partial Pressure CO2 12.7*L, Arterial Blood Partial Pressure O2 150.2H, Arterial Blood Total CO2 6.3L, Arterial Blood HCO3 5.9L, Arterial Blood Base Excess -18 .3L, Arterial Blood Oxygen Saturation 98.6 CBC/BMP Laboratory Tests 11/08/18 22:47 Red Blood Count 2.91 L, Mean Corpuscular Volume 101.4 H, Mean Corpuscular Hemoglobin 33.3 H, Mean Corpuscular Hemoglobin Concent 32.9, Red Cell Distribution Width 15.1 H Assessment/Plan Acute liver failure with thrombocytopenia, elevated INR, severe lactic acidosis due to massive mets to the liver lactulose and supportive Acute renal failure on ckd 3 with hyperkalemia and severe acidosis baseline creatinine 1.4 as of october 15 2018 the from [facility] probably due minimal oral intake in [facility] last 3 days. No obstruction in CT abdomen and pelvis. started on bicarb gtt and IVF boluses. Acute metabolic encephalopathy due to uremia and hepatic encephalopathy lactulose enema IVF. Shock with shock liver shock may be due to severe acidosis/ infection/ poor oral intake and intravascular depletion. meropenem ivf fluid 3 liter bolus. bicarb gtt. will consider vasopressors if Bp does not come up with IVF. Hypotension due to either sepsis or severe acidosis. continue IVF, bicarb gtt. Severe high anion gap metabolic acidosis due to lactic acidosis and renal failure Metastatic small cell cancer of the lungs with massive mets to liver as per CT scan in [facility] in first week of october Advance directives discussed explained the endstage cancer with liver failure and renal failure and probable demise this admission accepted DNR and DNI have not yet accepted MACHINERY MOVER status Would initiate discussions about MACHINERY MOVER Plan / VTE VTE Prophylaxis Ordered?: Yes OREN VALDERRAMA MD Nov 09, 2018 02:55
--- NOTE | 2018-11-09 07:41 | REP ---
A PA and lateral chest with the patient sitting: Comparison is 10/05/2017. There is a right IJ central venous catheter with the tip in the superior vena cava as an interval change. There is no pneumothorax or hemothorax. Lung tracy are clear. Cardiac size is normal. The naeem, mediastinum, skeletal structures are unremarkable. Impression: New right IJ central venous catheter as described. Otherwise, negative PA and chest Electronically Signed by Tylor Lutz MD 11/09/2018 07:32 A
[2018-11-09] MEDS ORDERED: SODIUM CHLORIDE 0.9% 1000ML IV ONE (08:15)
[2018-11-09] MEDS ORDERED: ACETAMINOPHEN 650 MG SUPP PR PRN (09:00)
[2018-11-09] MEDS ORDERED: BISACODYL 10 MG SUPP PR PRN (09:00)
[2018-11-09] MEDS ORDERED: ONDANSETRON 4MG/2ML VIAL (J2405) IV PRN (09:00)
[2018-11-09] MEDS ORDERED: SCOPOLAMINE 1MG TRANSDERMAL PATCH TOP PRN (09:00)
[2018-11-09] MEDS ORDERED: LORazepam 2 MG/ML VIAL (J2060) IV PRN (09:00)
[2018-11-09] MEDS ORDERED: ATROPINE SULFATE 1% OP SOLN 2 ML BTL SL PRN (09:00)
[2018-11-09] MEDS ORDERED: FLEET ENEMA PR PRN (09:00)
[2018-11-09] MEDS ORDERED: MORPHINE 4 MG/ML 1ML VIAL/SYRINGE (J2270) IV PRN (09:00)
[2018-11-09] MEDS: MORPHINE 4 MG/ML 1ML VIAL/SYRINGE (J2270) IV PRN ×2 (11:35→13:04)
--- NOTE | 2018-11-10 15:11 | DS.PDOC ---
Discharge Summary General Date of Admission Nov 09, 2018 at 04:05 Date of Discharge 11/09/18 Discharge Summary PROCEDURES PERFORMED DURING STAY: [None]. ADMITTING DIAGNOSES: 1. [stage 4 small cell cancer with metabolic decline - weakness and multi organ failure - acute renal and liver failure ]. DISCHARGE DIAGNOSES: 1. [stage 4 small cell cancer with metabolic decline - weakness and multi organ failure]. COMPLICATIONS/CHIEF COMPLAINT: Acute Liver Failure; Acute Renal Failure. HISTORY OF PRESENT ILLNESS: 63 year old female with PMH of metastatic small cell cancer with mets to liver, brain s/p whole brain radiation, radiation to mediastinum, received different regimens of chemotherapy with disease progression started on topotecan on 11/08 was brought to the ED for abdominal pain in the RUQ radiating to the back. She also has been having confusion,extreme weakness for 4 days. She has been slee ping too much since Tuesday and with minimal oral intake. So on Tuesday removed her fentanyl patch. She also had a fall on Tuesday that is 2 days ago but refused to come to hospital then. After removal of her fentanyl patch her pain had become uncontrollable. She was given morphine and fentanyl in the ED that made her very lethargic so was given narcan. In the ED patient was found to be encephalopathic ,in acute renal failure, with BUN> 100, severe high anion gap metabolic acidosis, lactic acidosis. elevated WBC. Her blood pressures were 80s/50s . She was found to be in acute hepatic failure and acute renal failure with acute metabolic encephalopathy. The patient complained of generalized abdominal pain with maximum in the right upper quadrant. it is dull aching in nature about 7/10 with radiation to the back. HOSPITAL COURSE: [Patient was admitted to the hospital for signs of multiple organ failure in patient with end stage small cell cancer. Patient was made dnr/dni on admitted. Patient's BP was consistently low even after receiving a number of NS boluses, family did not want her to be placed on pressors. They requested to make her comfort care and she was made comfort care. Later in the day patient . ]. DISCHARGE MEDICATIONS: Please see below. ALLERGIES: Please see below. LABORATORY DATA: Please see below PROGNOSIS: [grave DISPOSITION: . TIME SPENT ON DISCHARGE: Greater than [20] minutes. Vital Signs/I&Os Vital Signs Date Time Temp Pulse Resp B/P (MAP) Pulse Ox O2 Delivery O2 Flow Rate FiO2 11/09/18 09:01 93.6 86 28 73/35 (56) 98 I&O- Last 24 Hours up to 6 AM 11/09/18 05:59 Intake Total 1000 ml Output Total 125 ml Balance 875 ml Laboratory Data Labs 24H Laboratory Tests 2 11/09/18 00:29: Ammonia 42H 11/09/18 00:41: Urine Color DARLENE, Urine Appearance CLOUDYH, Urine pH 5.0, Urine Specific [place] 1.013, Urine Protein NEGATIVE, Urine Glucose (UA) NEGATIVE, Urine Keto lilliam NEGATIVE, Urine Blood 1+H, Urine Nitrite NEGATIVE, Urine Bilirubin NEGATIVE, Urine Urobilinogen 0.2, Urine Leukocyte Esterase NEGATIVE, Urine WBC (Auto) 0, Urine RBC (Auto) 0, Urine Hyaline Casts (Auto) 0, Urine Bacteria (Auto) 1+H, Urine Squamous Epithelial Cells 0, Urine Transitional Epithelial Cells 1, Urine Amorphous Sediment SMALLH, Urine Mucus (Auto) SMALL, Urine Sperm (Auto) , Urine Amphetamines Screen NEGATIVE, Urine Benzodiazepines Screen NEGATIVE, Urine Opiates Screen NEGATIVE, Urine Methadone Screen NEGATIVE, Urine Barbiturates Screen NEGATIVE, Urine Phencyclidine Screen NEGATIVE, Urine Cocaine Metabolite Screen NEGATIVE, Urine Cannabinoids Screen NEGATIVE 11/09/18 02:15: Blood Gas Bicarbonate Standard 10.7L, Arterial Blood pH 7.283L, Arterial Blood Partial Pressure CO2 12.7*L, Arterial Blood Partial Pressure O2 150.2H, Arterial Blood Total CO2 6.3L, Arterial Blood HCO3 5.9L, Arterial Blood Base Excess - 18.3L, Arterial Blood Oxygen Saturation 98.6 11/09/18 02:48: Lactic Acid Level 10.9*H, Procalcitonin 1.76 11/09/18 04:05: Lab Scanned Report LAB OTHER 11/09/18 05:05: Immature Granulocyte % (Auto) , Nucleated Red Blood Cells % (auto) 1.8H, Neutrophils 77H, Band Neutrophils 5, Lymphocytes (Manual) 10L, Monocytes (Manual) 6, Metamyelocytes 2H, Toxic Granulation 1+, Toxic Vacuolation 1+, P latelet Estimate DECREASED, Anisocytosis 1+, Macrocytosis 2+, Ovalocytes 1+, Prothrombin Time 25.9H, Prothromb Time International Ratio 2.39, Activated Partial Thromboplast Time 41.4H, Magnesium Level 3.6H, Aspartate Amino Transf (AST/SGOT) 2402H, Alanine Aminotransferase (ALT/SGPT) 1441H, Alkaline Phosphatase 475H, Total Bilirubin 4.8H, Direct Bilirubin 4.1H, Total Protein 4.5L, Albumin 2.3L, Albumin/Globulin Ratio 1.05 11/09/18 07:09: Lactic Acid Followup at 4 Hours 11.3*H CBC/BMP Laboratory Tests 11/09/18 05:05 Red Blood Count 2.80 L, Mean Corpuscular Volume 102.1 H, Mean Corpuscular Hemoglobin 34.3 H, Mean Corpuscular Hemoglobin Concent 33.6, Red Cell Distribution Width 15.2 H Microbiology Microbiology 11/09/18 Blood Culture, Received Pending 11/09/18 Blood Culture, Received Pending Discharge Medications Scheduled Alpha Lipoic Acid (Alpha Lipoic Acid) 600 Mg Capsule, 600 MG PO DAILY, (Reported) Ascorbic Acid (Vitamin C) 250 Mg Tab, 250 MG PO DAILY, (Reported) Biotin (Biotin) 10 Mg Tab, 10 MG PO DAILY, (Reported) Carvedilol (Carvedilol) 6.25 Mg Tab, 6.25 MG PO BID, (Reported) Pegfilgrastim-Cbqv (Udenyca) 6 Mg/0.6 Ml Syringe, 6 MG SC Q6DAYS, (Reported) TAKES AFTER 5 DAY COURSE OF HYCAMTIN. Ranitidine HCl (Ranitidine HCl) 300 Mg Tab, 1 TAB PO DAILY, (Reported) Spironolactone (Spironolactone) 25 Mg Tab, 25 MG PO DAILY, (Reported) Topotecan HCl (Hycamtin) 1 Mg Capsule, 4 MG PO DAILY, (Reported) FOR 5 DAYS. STARTED THURSDAY NOVEMBER 08, 2018. TAKES WITH 0.50MG DOSE FOR TOTAL OF 4.5MG DAILY Topotecan HCl (Hycamtin) 0.25 Mg Capsule, 0.5 MG PO DAILY, (Reported) FOR 5 DAYS. STARTED THURSDAY NOVEMBER 08, 2018. TAKES WITH 4MG DOSE FOR TOTAL OF 4.5MG DAILY Vitamin B Complex (Vitamin B Complex) 1 Each Capsule, 1 CAP PO DAILY, (Reported) fentaNYL (fentaNYL) 50 Mcg Patch.td72, 50 MCG TD Q3D, (Reported) REMOVED SHAY EVENING Miscellaneous Medications [Patient Comments] , (Reported) PATIENT'S FAMILY STATES SHE HAS PROBABLY NOT TAKEN HER SCHEDULED MEDICATIONS FOR SEVERAL DAYS WITH THE EXCEPTION OF THE HYCAMTIN Allergies Coded Allergies: Penicillins (Verified Allergy, Intermediate, Hives, 08/09/18) MARCY GARIBAY MD Nov 09, 2018 23:08
--- NOTE | 2018-11-10 21:41 | ECGEPIP ---
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
== END 2018-11-09 15:10 | disposition expired | DRG 871 ==
LOC: M ED 22:02 → M ED INP 11-09 04:05 → M ICU 11-09 04:44 → M MSPAV 11-09 13:14
PROVIDERS: ADMIT Internal Medicine Nephrology; ATTEND Internal Medicine Nephrology
DX: A41.9 Sepsis, unspecified organism (principal); G93.41 Metabolic encephalopathy; K72.00 Acute and subacute hepatic failure without coma; R65.21 Severe sepsis with septic shock; E87.2 Acidosis; C34.90 Malignant neoplasm of unspecified part of unspecified bronchus or lung; C78.7 Secondary malignant neoplasm of liver and intrahepatic bile duct; C79.31 Secondary malignant neoplasm of brain; N17.9 Acute kidney failure, unspecified; Z51.5 Encounter for palliative care; Z66 Do not resuscitate; K44.9 Diaphragmatic hernia without obstruction or gangrene; I71.4 Abdominal aortic aneurysm, without rupture; E78.5 Hyperlipidemia, unspecified; K21.9 Gastro-esophageal reflux disease without esophagitis; I12.9 Hypertensive chronic kidney disease with stage 1 through stage 4 chronic kidney disease, or unspecified chronic kidney disease; D69.6 Thrombocytopenia, unspecified; N18.3 Chronic kidney disease, stage 3 (moderate); I25.10 Atherosclerotic heart disease of native coronary artery without angina pectoris; E87.5 Hyperkalemia; I95.9 Hypotension, unspecified; Z92.3 Personal history of irradiation; Z92.21 Personal history of antineoplastic chemotherapy; Z79.899 Other long term (current) drug therapy; Z88.0 Allergy status to penicillin; Z79.891 Long term (current) use of opiate analgesic; Z90.49 Acquired absence of other specified parts of digestive tract